=== PATIENT | female | born 2000 | race Caucasian/White ===

== ENCOUNTER 2022-10-28 20:41 | Emergency (ER) | payer OTHER, BC ==
[~2022-10-28] VITALS: Ht 149.9 cm; Wt 72.9 kg
[2022-10-29] MEDS ORDERED: KETOROLAC TROMETHAMINE 10 MG TAB PO ONE (00:15)
[2022-10-29] MEDS ORDERED: ONDANSETRON 4MG ORAL DISINTEGRATING TAB PO ONE (00:15)
[2022-10-29 01:08] LABS: AMPHETAMINES LEVEL URINE NEGATIVE (NEGATIVE); BARBITURATES URINE NEGATIVE (NEGATIVE); BENZODIAZEPINES URINE NEGATIVE (NEGATIVE)
[2022-10-29 01:09] LABS: CANNABINOIDS URINE NEGATIVE (NEGATIVE); COCAINE METABOLITE URINE NEGATIVE (NEGATIVE); METHADONE URINE NEGATIVE (NEGATIVE); OPIATES URINE NEGATIVE (NEGATIVE); PHENCYCLIDINE URINE NEGATIVE (NEGATIVE)
[2022-10-29 01:21] VITALS: BP 140/98
[2022-10-29] MEDS ORDERED: KETO10TAB PO (01:24)
[2022-10-29] MEDS ORDERED: METH-1164 PO (01:24)
== END 2022-10-29 01:37 | disposition home or self-care (01) ==
LOC: M ED 20:41
DX: S06.0X0A Concussion without loss of consciousness, initial encounter (principal); S40.012A Contusion of left shoulder, initial encounter; W10.9XXA Fall (on) (from) unspecified stairs and steps, initial encounter; Y92.89 Other specified places as the place of occurrence of the external cause; Y93.01 Activity, walking, marching and hiking; Y99.0 Civilian activity done for income or pay; M54.50 Low back pain, unspecified

== ENCOUNTER → 2023-09-17 | Outpatient (REF) | payer OTHER, BC ==
[~2023-09-17] MED LIST: KETO10TAB PO; METH-1164 PO
[2023-09-17 12:56] LABS: APPEARANCE, URINE CLOUDY (CLEAR); BACTERIA, URINE AUTO NEGATIVE (NEGATIVE); BILIRUBIN, URINE AUTO NEGATIVE (NEGATIVE); BLOOD, URINE BLOOD 1+ (NEGATIVE); COLOR, URINE YELLOW (YELLOW); GLUCOSE, URINE (UA) AUTO NEGATIVE (NEGATIVE); KETONE, URINE AUTO NEGATIVE (NEGATIVE); LEUKOCYTE ESTERASE, URINE AUTO 3+ (NEGATIVE); MUCUS, URINE SMALL (NEGATIVE); NITRITE, URINE AUTO NEGATIVE (NEGATIVE); PROTEIN, URINE AUTO 2+ mg/dL (NEGATIVE); RBC, URINE AUTO 54 /HPF (0-3); SPECIFIC GRAVITY URINE AUTO 1.025 (1.002-1.035); SQUAMOUS EPITHELIAL CELL UR AU 7 /HPF (0-6); UROBILINOGEN, URINE AUTO 0.2 mg/dL (0.0-2.0); WBC, URINE AUTO TNTC /HPF (0-3)
== END ==
LOC: M LAB REF 11:45
PROVIDERS: ATTEND Physician Assistant
DX: N39.0 Urinary tract infection, site not specified (principal); B96.4 Proteus (mirabilis) (morganii) as the cause of diseases classified elsewhere